=== PATIENT | male | born 1975 | race Caucasian/White ===

== ENCOUNTER 2017-06-06 11:10 | Emergency (ER) | payer OTHER ==
[~2017-06-06] VITALS: Ht 175.3 cm; Wt 81.6 kg
--- NOTE | 2017-06-06 11:17 | NUR ---
Patient discharged to home in stable conditon in custody. Written and verbal after care instructions given. Patient verbalizes understanding of instructions.
== END 2017-06-06 11:20 ==
LOC: ER 11:10
DX: M54.5 Low back pain (principal)
CPT/HCPCS: A4663